=== PATIENT | female | born 1950 | race Caucasian/White ===

== ENCOUNTER → 2017-11-21 | Outpatient (CLI) | payer MEDICARE, OTHER ==
[~2017-11-21] MED LIST: ALPR-700 PO; BEN100 PO; CYCL1DRO6 OP; FLAX100042 PO; LEVA15HF6 IH; OSC600 PO; PAN40 PO; [UNRECOGNIZED DRUG - CODE] PO
--- NOTE | 2017-11-21 11:40 | RADIOLOGY IMAGING REPORT ---
FACILITY: [facility] PATIENT NAME: BALA COSME : [id number] MR: [id number] V: [id number] EXAM DATE: ORDERING PHYSICIAN: JUDE LISA TECHNOLOGIST: Elli Leonardo PROCEDURE:BILATERAL DIGITAL SCREENING MAMMOGRAM WITH CAD ASSISTED INTERPRETATION & 3D TOMOSYNTHESIS COMPARISON:Prior mammograms 10/15/16, 10/13/15, 10/11/14, 10/05/13, 10/01/12. INDICATIONS:SCREENING FINDINGS: Extremely dense heterogeneous fibroglandular tissue is seen throughout the breasts. Most of the parenchymal pattern has remained stable allowing for difference in mammographic technique & patient positioning. There is a small grouping of calcifications in the inferior portion of the Right breast on the Right MLO view and just lateral to midline on the Right CC view in the middle 1/3 which have increased in number therefore Spot magnification view is recommended. DIAGNOSTIC CATEGORY 0--INCOMPLETE: NEED ADDITIONAL IMAGING EVALUATION. RECOMMENDATIONS: ADDITIONAL MAMMOGRAPHIC VIEWS REQUIRED: RIGHT BREAST. IMPRESSION: BIRADS 0: Incomplete. Additional views of the Right breast recommended as described. Dictated by: Rowan Scott M.D. on 11/21/2017 at 10:55 Transcribed by: BEATRICE on 11/21/2017 at 11:03 Approved by: Rowan Scott M.D. on 11/21/2017 at 11:39 [facility]
== END ==
LOC: MAMO 03:29
PROVIDERS: ATTEND Nurse Practitioner Psychiatric/Mental Health
DX: R92.2 Inconclusive mammogram (principal)
CPT/HCPCS: 77063; 77067

== ENCOUNTER → 2017-12-02 | Outpatient (CLI) | payer MEDICARE, OTHER ==
--- NOTE | 2017-12-02 17:28 | RADIOLOGY IMAGING REPORT ---
[place] [facility] [place] BALA COSME : [id number] MR: [id number] V: [id number] EXAM DATE: ORDERING PHYSICIAN: JUDE LISA TECHNOLOGIST: Elli Leonardo PROCEDURE:RIGHT DIGITAL DIAGNOSTIC MAMMOGRAM WITH CAD ASSISTED INTERPRETATION COMPARISON:Prior mammograms 11/21/17, 10/15/16, 10/13/15, 10/11/14, 10/05/13, 10/01/12. INDICATIONS:further evaluation FINDINGS: The patient returns for Spot magnification views in the Right CC projection and Right MLO projection in addition to a multiple tangential views and a repeat Right CC view. Extremely dense heterogeneous fibroglandular tissue is seen throughout the Right breast. The small grouping of calcifications noted on the recent mammograms along the inferior portion of the Right breast and Right MLO view and just lateral to midline on the Right CC view appear very course and not powder like. On the tangential view these may actually be located on the patient's skin. A 6 month follow-up Right mammogram is recommended unless clinical findings warrant more immediate attention. DIAGNOSTIC CATEGORY 3--PROBABLY BENIGN FINDING. RECOMMENDATIONS: SIX MONTH FOLLOW-UP DIAGNOSTIC MAMMOGRAM: RIGHT BREAST. IMPRESSION: BIRADS 3: Probably benign finding. A 6 month follow-up Right mammogram is recommended as described. Dictated by: Rowan Scott M.D. on 12/02/2017 at 14:52 Transcribed by: BEATRICE on 12/02/2017 at 15:08 Approved by: Rowan Scott M.D. on 12/02/2017 at 17:27 [facility]
== END ==
LOC: MAMO 01:16
PROVIDERS: ATTEND Nurse Practitioner Psychiatric/Mental Health
DX: R92.1 Mammographic calcification found on diagnostic imaging of breast (principal)
CPT/HCPCS: 77061; 77065

== ENCOUNTER → 2018-05-27 | Outpatient (CLI) | payer MEDICARE, OTHER ==
--- NOTE | 2018-05-29 09:31 | RADIOLOGY IMAGING REPORT ---
FACILITY: [facility] - [place] PATIENT NAME: BALA COSME : [id number] MR: [id number] V: [id number] EXAM DATE: [id number] ORDERING PHYSICIAN: JUDE LISA TECHNOLOGIST: Elli Leonardo PROCEDURE:RIGHT DIGITAL DIAGNOSTIC MAMMOGRAM WITH CAD ASSISTED INTERPRETATION & 3D TOMOSYNTHESIS COMPARISON:Prior mammograms 12/02/17, 11/21/17, 10/15/16, 10/13/15, 10/11/14, 10/05/13. INDICATIONS:6 M/FU FINDINGS: The Right breast is extremely dense which lowers the sensivity of mammography. The tiny grouping of round calcifications in the lower outer quadrant of the Right breast middle 1/3 appears more confluent. There is no evidence of branching or pleomorphism. These likely represent benign calcifications. A 6 month follow-up bilateral mammogram is recommended at which time the patient will be due for her annual mammogram. DIAGNOSTIC CATEGORY 3--PROBABLY BENIGN FINDING. RECOMMENDATIONS: SIX MONTH FOLLOW-UP DIAGNOSTIC MAMMOGRAM: BILATERAL BREASTS. IMPRESSION: BIRADS 3: Probably benign finding. A 6 month follow-up bilateral mammogram is recommended at which time the patient will be due for her annual mammogram. Dictated by: Rowan Scott M.D. on 05/27/2018 at 14:34 Transcribed by: BEATRICE on 05/29/2018 at 9:03 Approved by: Rowan Scott M.D. on 05/29/2018 at 9:29 [facility]
== END ==
LOC: MAMO 07:13
PROVIDERS: ATTEND Nurse Practitioner Psychiatric/Mental Health
DX: R92.8 Other abnormal and inconclusive findings on diagnostic imaging of breast (principal)
CPT/HCPCS: 77061; 77065